=== PATIENT | female | born 1990 | race Caucasian/White ===

== ENCOUNTER → 2024-04-17 08:23 | Outpatient (REF) | payer BC, SELFPAY | LOC: HWRAD 08:23 | PROVIDERS: ATTENDING PHYSICIAN Nurse Practitioner | DX: M79.671 Pain in right foot (principal) | CPT/HCPCS: 73650 ==

== ENCOUNTER 2025-02-13 23:15 | Inpatient (IN) | payer BC, SELFPAY ==
[2025-02-13 23:28] VITALS: BP 81/69; BMI 22.2
[2025-02-13] MEDS: LR 1000 IV (23:35)
[2025-02-13 23:43] LABS: Hematocrit 36.0 % (37.0-47.0); Hemoglobin 12.7 g/dL (12.0-16.0); Mean Corp Hgb Conc. 35.3 g/dL (33.0-37.0); Mean Corpuscular Volume 87.2 fL (81.0-99.0); Nucleated Red Blood Cells % 0 %; Platelet Count 165 10^3/uL (130-400); Red Cell Dist. Width 13.0 % (11.5-14.5)
[2025-02-14] MEDS: SUBLIMAZE 100 MCG EPIDURAL (00:05)
[2025-02-14] MEDS: FENTANYL/BUPIVACAINE 100 EPIDURAL (00:06)
[2025-02-14] MEDS: PITOCIN 30 UNITS/NSS 500 ML IV (00:53)
[2025-02-14] MEDS: COLACE 100 MG PO ×2 (08:31→20:30)
[2025-02-14] MEDS: PRENATAL PLUS 1 TABLET PO (08:31)
[2025-02-14] MEDS: MOTRIN 600 MG PO ×3 (09:38→22:07)
[2025-02-15 05:25] LABS: Hematocrit 33.7 % (37.0-47.0); Hemoglobin 11.6 g/dL (12.0-16.0)
[2025-02-15] MEDS: MOTRIN 600 MG PO (05:40)
[2025-02-15] MEDS: COLACE 100 MG PO (08:10)
[2025-02-15] MEDS: PRENATAL PLUS 1 TABLET PO (08:10)
[2025-02-15] MEDS: M-M-R II 0.5 ML SC ×2 (10:06→11:49)
[2025-02-16 11:06] LABS: Syphilis/T. pallidum Ab Reflex Negative (Negative)
== END 2025-02-15 11:54 | disposition home or self-care (01) | DRG 807 ==
LOC: LDRP 23:15
PROVIDERS: Student in an Organized Health Care Education/Training Program; ADMITTING PHYSICIAN Obstetrics & Gynecology; FAMILY PHYSICIAN Nurse Practitioner; REFERRING PHYSICIAN Obstetrics & Gynecology
PROC: 10E0XZZ Delivery of Products of Conception, External Approach (ICD-10-PCS; 2025-02-14)
PROC: 0KQM0ZZ Repair Perineum Muscle, Open Approach (ICD-10-PCS; 2025-02-14)
PROC: 3E0134Z Introduction of Serum, Toxoid and Vaccine into Subcutaneous Tissue, Percutaneous Approach (ICD-10-PCS; 2025-02-15)
DX: O42.02 Full-term premature rupture of membranes, onset of labor within 24 hours of rupture (principal); Z37.0 Single live birth; Z3A.40 40 weeks gestation of pregnancy; O70.1 Second degree perineal laceration during delivery; O69.81X0 Labor and delivery complicated by cord around neck, without compression, not applicable or unspecified; Z23 Encounter for immunization; Z86.16 Personal history of COVID-19
CPT/HCPCS: 36415; 85014; 85018; 85025; 86780; 86850; 86900; 86901; 88307; 90707